=== PATIENT | female | born 1945 | race Caucasian/White ===

== ENCOUNTER → 2024-12-23 16:08 | Outpatient (CLI) | payer MEDICARE, OTHER, SELFPAY ==
--- NOTE | 2024-12-23 16:11 | DI.MRI.S_ITS ---
PROCEDURE: MR HEAD/BRAIN WO/W CON INDICATIONS: MENINGIOMA TECHNIQUE: Noncontrast axial T1 spin echo, axial T2 fast spin echo, sagittal and axial FLAIR, coronal T2 fast spin echo, axial gradient echo, axial diffusion and ADC through the brain. After the administration of contrast, axial and coronal and sagittal T1 spin echo with fat saturation through the brain. COMPARISON: No prior MRI studies are available for review at the time of this dictation. FINDINGS: Image quality: Excellent. CSF spaces: Basal cisterns are patent. No extra-axial fluid collections. Ventricles are normal in size and shape. Brain: There is an enhancing extra-axial mass seen along the lateral aspect of the right frontal lobe superiorly, measuring 15 x 9 x 9 mm. There is a broad attachment to the dura. No additional masses or areas of abnormal enhancement can be seen. No midline shift. No intracranial bleeds. Moderate generalized brain parenchymal volume loss is seen. The volume loss is slightly more prominent within the temporal lobes and parietal lobes than elsewhere within the brain. There is mild chronic small vessel ischemic change. The brainstem appears normal. Diffusion-weighted images demonstrate no acute infarct. No chronic ischemic insults. Normal intravascular flow voids are present. Skull and face: Calvarial marrow is normal in signal. Orbits appear normal. Note is made of bilateral lens replacements. Sinuses: Sinuses and mastoids appear clear. IMPRESSION: 15 mm right superior frontal extra-axial mass, which is consistent with the given clinical history of a meningioma. Dictated by: Dwayne Diaz M.D. on 12/23/2024 at 16:35 Approved by: Dwayne Diaz M.D. on 12/23/2024 at 16:38
== END ==
PROVIDERS: Family Provider Family Medicine; PCP Family Medicine; Referring Provider Family Medicine; Visit Provider Family Medicine
DX: D32.0 Benign neoplasm of cerebral meninges (principal)
CPT/HCPCS: 70553; A9579